=== PATIENT | female | born 1960 | race Caucasian/White ===

== ENCOUNTER 2025-02-24 19:58 | Emergency (ER) | payer OTHER, MEDICAID ==
[~2025-02-24] VITALS: Ht 162.6 cm; Wt 176.0 kg
[2025-02-24] MEDS ORDERED: ONDANSETRON HCL/PF 4 MG/2 ML VIAL ONE (20:23)
[2025-02-24] MEDS ORDERED: FAMOTIDINE/PF INJ 20 MG/2 ML VIAL IV ONE (20:24)
[2025-02-24] MEDS: ONDANSETRON HCL/PF 4 MG/2 ML VIAL IVP ONE (20:36)
[2025-02-24] MEDS: FAMOTIDINE (20 MG) 20 MG TABLET PO ONE (20:36)
[2025-02-24] MEDS: IV NS 0.9% 1,000 ML BAG IV ONE (20:36)
[2025-02-24 20:54] LABS: PLATELET COUNT (AUTO) 227 K/uL (150-450); RED BLOOD CELL COUNT(AUTO) 4.57 MIL/uL (4.0-5.2); RED CELL DISTRIBUTION WIDTH 14.1 % (11.5-15.0); WHITE BLOOD COUNT (AUTO) 5.5 K/uL (4.3-11.0)
[2025-02-24 21:12] LABS: CALCIUM, SERUM 9.2 mg/dL (8.5-10.1); CREATININE 0.5 mg/dL (0.6-1.3); SODIUM SERUM 138 mmol/L (136-145); UREA NITROGEN, BLOOD 16 mg/dL (7-18)
[2025-02-24 21:34] LABS: ASPARTATE AMINOTRANSFERASE 33 U/L (15-37); NT-PRO BNP 4137 pg/mL (0-125); TOTAL PROTEIN, SERUM 7.4 g/dL (6.4-8.2)
[2025-02-25] MEDS ORDERED: KETOROLAC TROMETHAMINE 15 MG/ML VIAL ONE (01:34)
[2025-02-25] MEDS: KETOROLAC TROMETHAMINE 15 MG/ML VIAL IV ONE (01:41)
[2025-02-25 02:10] LABS: APPEARANCE,URINE CLEAR (CLEAR); BLOOD, URINE 2+ Ery/uL (NEGATIVE); LEUKOCYTE ESTERASE ,URINE NEGATIVE (NEGATIVE); NITRITE, URINE NEGATIVE (NEGATIVE); UGLUCOSE NEGATIVE (NEGATIVE)
[2025-02-25] MEDS ORDERED: ACET-2030 PO (02:31)
[2025-02-25] MEDS ORDERED: PANT40TA49 PO (02:31)
[2025-02-25] MEDS ORDERED: POLY17PO4 PO (02:31)
[2025-02-25 03:01] LABS: ADD URINE CULTURE YES; SQUAMOUS EPITHELIAL CELL,UR 0-2 /HPF (None Seen)
[2025-02-25 07:24] VITALS: BP 155/90; TEMP 97.9; O2SAT 99
== END 2025-02-25 07:25 | disposition home or self-care (01) ==
LOC: ER 20:10
DX: J06.9 Acute upper respiratory infection, unspecified (principal); I11.9 Hypertensive heart disease without heart failure; I48.91 Unspecified atrial fibrillation
CPT/HCPCS: 99285; 74176; 96374; 76856; 71045; 96361; 93005; 85025; 80048; 83690; 80076; 36415; 84484; 83880; 76705; 96375; 87086; 81001; J1308; J2405; J7030; J1885